=== PATIENT | female | born 1990 | race Asian ===

== ENCOUNTER 2018-10-06 14:51 | Inpatient (IN) | payer OTHER ==
[~2018-10-06] VITALS: Ht 152.4 cm; Wt 64.4 kg
[~2018-10-06 14:51] MED LIST: NOCURR
[2018-10-06 16:30] VITALS: BP 125/84
[2018-10-06] MEDS ORDERED: RINGERS SOLUTION,LACTATED 1,000 ML IV SCH (17:30)
[2018-10-06] MEDS ORDERED: LIDOCAINE/PF 1% 30 ML VIAL INJ PRN (17:30)
[2018-10-06] MEDS ORDERED: METOCLOPRAMIDE HCL 5 MG/ML 2 ML VIAL IVP PRN (17:30)
[2018-10-06] MEDS ORDERED: CITRIC ACID/SODIUM CITRATE 30 ML SOLUTION UDCUP PO PRN (17:30)
[2018-10-06] MEDS ORDERED: OXYTOCIN 30 UNITS/LACT RINGERS 500 ML IV ONE (17:30)
[2018-10-06] MEDS ORDERED: RINGERS SOLUTION,LACTATED 1,000 ML IV ONE ×2 (17:30→20:02)
[2018-10-06] MEDS ORDERED: OXYTOCIN 20 UNITS/LACT RINGERS 1,000 ML IV SCH (17:45)
[2018-10-06 18:29] LABS: BASOPHILS % (AUTO) 0.3 % (0.0-2.0); EOSINOPHILS % (AUTO) 0.4 % (1.0-6.0); HEMATOCRIT 32.8 % (36-46); HEMOGLOBIN 10.7 g/dL (12.0-16.0); LYMPHOCYTES # (AUTO) 1.8 K/uL (1.0-4.8); MEAN CORPUSCULAR HEMOGLOBIN 25.9 pg (26.0-34.0); MEAN CORPUSCULAR HGB CONC 32.6 G/dL (31.0-37.0); MEAN CORPUSCULAR VOLUME 79 fL (80-100); MONOCYTES # (AUTO) 0.8 K/uL (0.1-1.0); MONOCYTES % (AUTO) 7.5 % (2.0-9.0); NEUTROPHILS # (AUTO) 7.7 K/uL (1.8-7.7); NEUTROPHILS % (AUTO) 74.8 % (40.0-70.0); PLATELET COUNT (AUTO)-OB 316 K/uL (150-450); RED BLOOD CELL COUNT(AUTO) 4.14 MIL/uL (4.00-5.20); RED CELL DISTRIBUTION WIDTH 16.1 % (11.5-14.5)
[2018-10-06] MEDS ORDERED: OxyCODONE HCL/ACETAMINOPHEN 5-325 MG TABLET PO PRN ×2 (20:15)
[2018-10-06] MEDS ORDERED: BENZOCAINE 20%/MENTHOL 56 GM SPRAY CANISTER TP PRN (20:15)
[2018-10-06] MEDS ORDERED: IBUPROFEN 600 MG TABLET PO PRN (20:15)
[2018-10-06] MEDS ORDERED: GLYCERIN/WITCH HAZEL LEAF 40 PADS JAR TP PRN (20:15)
[2018-10-06] MEDS ORDERED: LANOLIN 7 GM OINTMENT TP PRN (20:15)
[2018-10-06] MEDS ORDERED: MEASLES/MUMPS/RUBELLA VACCINE, LIVE 0.5 ML/VIAL SQ ONE (20:15)
[2018-10-06] MEDS: MAGNESIUM HYDROXIDE SUSPENSION 30 ML UDCUP PO SCH (20:47)
[2018-10-07] MEDS: MAGNESIUM HYDROXIDE SUSPENSION 30 ML UDCUP PO SCH (10:29)
[2018-10-07] MEDS ORDERED: IBUP-2071 PO (11:00)
[2018-10-07] MEDS ORDERED: DSS100 PO (11:01)
[2018-10-07] MEDS ORDERED: FERR-89 PO (11:02)
== END 2018-10-07 19:25 | disposition home or self-care (01) | DRG 807 ==
LOC: 4S 14:51 → OBSVTOIN 14:51
PROVIDERS: ADMIT Obstetrics & Gynecology; ATTEND Obstetrics & Gynecology
PROC: 10E0XZZ Delivery of Products of Conception, External Approach (ICD-10-PCS; principal; 2018-10-06)
PROC: 3E02340 Introduction of Influenza Vaccine into Muscle, Percutaneous Approach (ICD-10-PCS; 2018-10-07)
DX: O62.3 Precipitate labor (principal); Z37.0 Single live birth; O69.81X0 Labor and delivery complicated by cord around neck, without compression, not applicable or unspecified; Z3A.39 39 weeks gestation of pregnancy; Z23 Encounter for immunization
CPT/HCPCS: 86850; 86900; 86901; 90686; 90707; J2590; J3490; J7120